=== PATIENT | female | born 1995 | race Caucasian/White ===

== ENCOUNTER 2018-02-03 19:26 | Emergency (ER) | payer MEDICAID ==
[~2018-02-03] VITALS: Ht 152.4 cm; Wt 52.2 kg
[2018-02-03 20:06] LABS: URINE BILIRUBIN NEGATIVE (Negative); URINE BLOOD 3+ (Negative); URINE CLARITY CLOUDY; URINE COLOR YELLOW; URINE GLUCOSE-RANDOM NEGATIVE (Negative); URINE KETONES NEGATIVE (Negative); URINE LEUKOCYTES-REFLEX 2+ (Negative); URINE NITRITE-REFLEX POSITIVE (Negative); URINE PROTEIN 2+ (Negative)
[2018-02-03] MEDS ORDERED: HYDROCODONE-AP1 EAC6 PO (20:12)
[2018-02-03] MEDS ORDERED: NAPROSYN500 MG PO (20:12)
[2018-02-03] MEDS ORDERED: BACTRIM DS TAB1 EACH PO (20:12)
[2018-02-03 20:13] LABS: MUCUS None Seen strn/LPF (None Seen); SQUAMOUS 4-10 Moderate /LPF (0-3)
[2018-02-03] MEDS ORDERED: PHENERGAN 25 MG25 M1 PO (20:14)
[2018-02-03 20:17] LABS: CASTS None Seen /LPF (None Seen); CRYSTALS None Seen /LPF (None Seen); URINE RBC 3-10 Few /HPF (0-2)
[2018-02-03 20:54] VITALS: BP 90/52
== END 2018-02-03 20:55 | disposition home or self-care (01) ==
LOC: M.ERS 19:26
PROVIDERS: Emergency Medicine
DX: N39.0 Urinary tract infection, site not specified (principal); Z91.041 Radiographic dye allergy status